=== PATIENT | male | born 1945 | race Caucasian/White ===

== ENCOUNTER → 2018-08-31 | Outpatient (CLI) | payer OTHER ==
[2018-08-31 15:50] LABS: Basophils % (A) 1 %; Eosinophils # (A) 0.4 k/uL (0-0.7); Eosinophils % (A) 5 %; HCT 40.1 % (39.0-53.0); HGB 12.8 gm/dL (13.0-17.5); Lymphocytes # (A) 2.2 k/uL (1.0-4.8); Lymphocytes % (A) 33 %; MCH 26.2 pg (25.0-35.0); MCHC 31.9 g/dL (31.0-37.0); MCV 82.2 fL (80.0-100.0); Monocytes # (A) 0.4 k/uL (0-1.0); Monocytes % (A) 5 %; Neutrophils # (A) 3.6 k/uL (1.3-7.7); Neutrophils % (A) 54 %; Platelet Count 155 k/uL (150-450); RBC 4.88 m/uL (4.30-5.90); RDW 14.8 % (11.5-15.5); WBC 6.8 k/uL (3.8-10.6)
[2018-08-31 15:55] LABS: Potassium 3.8 mmol/L (3.5-5.1)
== END | disposition home or self-care (01) ==
LOC: LABPAT 15:13
PROVIDERS: ATTEND Orthopaedic Surgery
DX: Z01.818 Encounter for other preprocedural examination (principal); Z01.812 Encounter for preprocedural laboratory examination; M23.91 Unspecified internal derangement of right knee
CPT/HCPCS: 36415; 80051; 85025; 93005

== ENCOUNTER 2018-09-13 08:10 | Day surgery (SDC) | payer OTHER ==
[2018-09-10 14:18] VITALS: BMI 38.2
--- NOTE | 2018-09-12 16:51 | HP ---
HISTORY AND PHYSICAL REASON FOR ADMISSION: Surgery is 09/13/2018 HISTORY OF PRESENT ILLNESS: Willy Lamb is a 72-year-old patient seen with progressive right knee pain. We discussed treatment options. He elected to proceed with right knee arthroscopy. Consent was obtained. PAST MEDICAL HISTORY: Hypertension, hyperlipidemia. PAST SURGICAL HISTORY: Left total knee arthroplasty, left shoulder surgery. MEDICATIONS: Amlodipine, simvastatin, morphine. ALLERGIES: LISINOPRIL. SOCIAL HISTORY: Denies tobacco use. PHYSICAL EXAMINATION: Evaluation of the right knee range of motion is negative 2 to 125. Mild effusion. Tenderness medial joint line. Positive medial Francois's. Ligaments are stable. Hip rotation without pain. Distal neurovascular exam intact. RADIOGRAPHS: Radiographs of the right knee revealed moderate plus osteoarthritic changes. An MRI of the right knee revealed medial meniscal tear. IMPRESSION: 1. Internal derangement, right knee with medial meniscal tear. 2. Hypertension. Hyperlipidemia. 1. Chronic opioid use. PLAN: Right knee arthroscopy with partial meniscectomy and debridement. Surgery is scheduled for 09/13/2018. MMODL / IJN: [id number] /
[~2018-09-13 08:10] MED LIST: DEXAMETHASONE SOD PHOSPHATE 10 MG/ML 1 ML VIAL IV ONE; LACTATED RINGERS 1,000 ML IV SCH; LIDOCAINE 1% 20 ML VIAL (10MG/ML) FOR IV START INTRADERMA PRN; MIDAZOLAM 2 MG/2 ML VIAL IV PRN; ONDANSETRON 4 MG/2 ML VIAL IVP ONE; SCOPOLAMINE 1.5MG/72HR PATCH TRANSDERM ONE; ceFAZolin IN SWFI 2 GM/20 ML SYRINGE IVP ONE
[2018-09-13] MEDS ORDERED: LIDOCAINE 1% INJ 10MG/ML (20 ML MDV) ONE (09:23)
[2018-09-13] MEDS ORDERED: MIDAZOLAM 2 MG/2 ML VIAL ONE (09:23)
[2018-09-13] MEDS ORDERED: PROPOFOL 10 MG/ML 20 ML VIAL IV ONE (09:23)
[2018-09-13] MEDS ORDERED: fentaNYL (PF) 50 MCG/ML 2 ML AMP ONE (09:23)
[2018-09-13] MEDS ORDERED: ROPIVACAINE 5 MG/ML 30 ML VIAL ONE (09:23)
[2018-09-13] MEDS ORDERED: BUPIVACAIN-EPI 0.25%-1:200,000 30 ML VIAL INTRAARTIC ONE (09:45)
--- NOTE | 2018-09-13 10:14 | P.ONQ ---
Anesthesiology Proc Note - PNB - Peripheral Nerve Block Performed Right Adductor Canal Single Time Out Performed: Yes Procedure Start Time: 08:52 Procedure Stop Time: 09:00 Indication: Acute Post-Operative Pain, Requested by physician Sedation Type: Sedate with meaningful contact maintained Preparation: Sterile Dressing Position: Supine Catheter: None Needle Types: On-Q Needle Size: 100mm (4") Needle Gauge: 21 Technique: Ultrasound Injectate: 0.5% Ropivacaine (see comment for volume) (20 ml w/ decadron 10 mg) Blood Aspirated: No Pain Paresthesia on Injection Noted: No Resistance on Injection: Normal Events: Uneventful and Well Tolerated
[2018-09-13 10:21] VITALS: RESP 16; TEMP 97.5
--- NOTE | 2018-09-13 10:25 | P.OP ---
Date of Procedure: 09/13/18 Preoperative Diagnosis: Internal derangement right knee Postoperative Diagnosis: 1. Tear medial meniscus right knee 2. Grade 4 chondromalacia medial femoral condyle right knee 3. Reactive synovitis medial, lateral and suprapatellar compartments right knee Procedure(s) Performed: 1. Arthroscopic partial medial meniscectomy right knee 2. Arthroscopic chondroplasty medial femoral condyle right knee 3. Arthroscopic microfracture medial femoral condyle right knee 4. Arthroscopic partial synovectomy medial, lateral and suprapatellar compartments right knee Anesthesia: GETA, regional (Popliteal block), local Surgeon: Ghassan Clark Estimated Blood Loss (ml): 5 Pathology: none sent Condition: stable Disposition: PACU Indications for Procedure: 72-year-old patient seen with progressive right knee pain. After having treatment options discussed, he elected to proceed with arthroscopy. Operative Findings: See description of procedure Description of Procedure: Patient was taken to the operative suite. Patient underwent a general anesthetic by the department of anesthesia. Patient was given preoperative antibiotics. The right lower extremity was placed in a well-padded arthroscopic leg marinelli. The right leg was prepped and draped in the normal sterile orthopedic fashion. A lateral parapatellar and suprapatellar incision was made. Trochars were inserted. Arthroscopy was initiated. Suprapatellar pouch revealed diffuse thick reactive synovitis. The patellofemoral joint appeared to articulate congruently. There was grade 2/3 chondromalacia of the patella. The scope was guided into the medial gutter. No loose body or plica were identified. The scope was then guided into the medial compartment. A medial parapatellar incision was made. Trocar inserted followed by probe. There was a complex tear posterior horn medial meniscus. There were grade 4 chondromalacia changes of the medial compartment with osteochondral tears noted of the medial femoral condyle. There was thick reactive synovitis anteriorly. I performed a partial medial meniscectomy down to stable tissue. I performed a chondroplasty of the medial femoral condyle down to stable tissue. I performed a partial synovectomy decompressing the reactive synovitis. The residual meniscus was stable. There was good decompression of the synovitis. There was an area of exposed bone medial femoral condyle. I performed a microfracture to that area penetrating the bone with resultant bleeding at the microfracture site. Scope and probe were then guided into the intercondylar notch. Cruciates were identified, probed and found to be table. The scope and probe were then guided into lateral compartment. Was some mild fraying of the lateral meniscus midbody area. There was thick reactive synovitis anteriorly. There were grade 1 chondromalacia changes lateral compartment. I debrided that superficial fraying of the lateral meniscus with a motorized shaver. I performed a partial synovectomy decompressing the reactive synovitis anteriorly. There was good decompression of synovitis lateral compartment. The scope was in guided back into the suprapatellar compartment. I introduced a motorized shaver into the suprapatellar compartment. I debrided some piecemeal fragments of meniscus I encountered. I performed a partial synovectomy decompressing the reactive synovitis. Shaver was removed. I took one more look on the entire knee, no residual debris. Instruments were now removed from the joint. The joint was infiltrated with .25% Marcaine. Steri-Strips were applied to the portal sites. Sterile dressings were applied. The patient was placed into a BLAIR hose. No tourniquet was utilized. The patient was awakened, transferred to a bed and taken to recovery stable satisfactory condition.
[2018-09-13] MEDS: HYDROmorphone 0.5 MG/0.5 ML SYRINGE IVP PRN ×4 (10:30→10:54)
[2018-09-13] MEDS ORDERED: diphenhydrAMINE 50 MG/ML 1 ML VIAL IVP ONE (10:42)
[2018-09-13] MEDS ORDERED: fentaNYL (PF) 50 MCG/ML 2 ML AMP IV ONE (11:09)
[2018-09-13 11:56] VITALS: PULSE 73
[2018-09-13 12:35] VITALS: BP 165/67
== END 2018-09-13 13:14 | disposition home or self-care (01) ==
LOC: OR 08:10
PROVIDERS: ATTEND Orthopaedic Surgery
DX: S83.206A Unspecified tear of unspecified meniscus, current injury, right knee, initial encounter (principal); X58.XXXA Exposure to other specified factors, initial encounter; M22.41 Chondromalacia patellae, right knee; M65.861 Other synovitis and tenosynovitis, right lower leg; I10 Essential (primary) hypertension; E78.5 Hyperlipidemia, unspecified; Z79.891 Long term (current) use of opiate analgesic; Z79.899 Other long term (current) drug therapy; Z79.82 Long term (current) use of aspirin; Z88.8 Allergy status to other drugs, medicaments and biological substances
CPT/HCPCS: 64447; 29881; 29876; J2250; J1200; J1100; J2405; J2001; J3010; J2795; J2704; J1170; J0690

== ENCOUNTER 2019-10-03 08:34 | Day surgery (SDC) | payer OTHER ==
[2019-10-02 08:41] VITALS: BMI 38.2
[~2019-10-03 08:34] MED LIST changes: -DEXAMETHASONE SOD PHOSPHATE 10 MG/ML 1 ML VIAL IV ONE; -LIDOCAINE 1% 20 ML VIAL (10MG/ML) FOR IV START INTRADERMA PRN; -MIDAZOLAM 2 MG/2 ML VIAL IV PRN; -ONDANSETRON 4 MG/2 ML VIAL IVP ONE; -SCOPOLAMINE 1.5MG/72HR PATCH TRANSDERM ONE; -ceFAZolin IN SWFI 2 GM/20 ML SYRINGE IVP ONE
[2019-10-03 09:01] VITALS: RESP 16; TEMP 97.6
[2019-10-03] MEDS ORDERED: fentaNYL (PF) 50 MCG/ML 2 ML AMP ONE (09:13)
[2019-10-03] MEDS ORDERED: PROPOFOL 10 MG/ML 20 ML VIAL IV ONE (09:13)
[2019-10-03] MEDS ORDERED: LIDOCAINE 1% INJ 10MG/ML (20 ML MDV) ONE (09:13)
--- NOTE | 2019-10-03 10:01 | P.PCN ---
Date of Procedure: 10/03/19 Description of Procedure: Brief history: Patient is a pleasant 73-year-old male scheduled for EGD and colonoscopy for evaluation of melena and blood in stool. Patient had positive stool for blood. He also takes NSAID therapy daily. Last endoscopic evaluation approximately 8 years ago. Procedure performed: Esophagogastroduodenoscopy with biopsy Colonoscopy with polypectomy Estimated blood loss: Minimal. Preoperative diagnosis: Melena, blood in stool Anesthesia: [facility] [place] Procedure: After informed consent was obtained from the patient was brought into the endoscopy unit and IV sedation was administered by anesthesia under continuous monitoring. Initially upper endoscopy was done. The Olympus GF 190 video endoscope was inserted into the mouth and esophagus intubated without any difficulty and was gradually advanced into the stomach and duodenum and carefully examined. The bulb and second part of the duodenum appeared normal, with biopsies taken. The scope was then withdrawn into the stomach adequately insufflated with air and upon careful examination the antrum and body, cardia and fundus appeared normal, except for diffuse mild punctate erythema in the antrum and body suggestive of mild gastritis of blood taken. A diminutive 1 mm polyp in the fundus of the stomach was also removed with cold forcep polypectomy. The scope was then withdrawn into the esophagus. The GE junction was located at 42 cm to the incisors. It appeared regular with no erythema ero sions or ulcerations. Rest of the esophagus appeared normal. Patient tolerated the procedure well. At this time the patient continued to remain sedation. Initial digital rectal examination was normal. Olympus CF 190 video colonoscope was then inserted into the rectum and gradually advanced to the cecum without any difficulty. Careful examination was performed as the scope was gradually being withdrawn. The prep was excellent. The cecum, ascending colon, transverse colon, descending colon, sigmoid colon and rectum appeared normal. A few scattered diverticula noted in the sigmoid colon. Diminutive 2 mm rectal polyp removed cold forcep polypectomy. Retroflexion was performed in the rectum and no lesions were noted, low-grade internal hemorrhoids noted. Patient tolerated the procedure well. Impression: 1. Mild gastritis antrum and body, biopsied. Duodenal biopsies. Diminutive polyp removed with cold forcep fundus, likely representing fundic gland polyp. 2. Diminutive rectal polyp removed with cold forcep polypectomy. Mild sigmoid diverticulosis. Low-grade internal hemorrhoids. Recommendations: Findings of this examination were discussed with the patient. Okay to resume diet. Okay to resume medications. Await pathology from polypectomy and biopsies. Would recommend repeat colonoscopy in 7 years, pending pathology from polypectomy.
[2019-10-03 10:15] VITALS: BP 150/69; PULSE 54
== END 2019-10-03 10:37 | disposition home or self-care (01) ==
LOC: ORWHC2ENDO 08:34
PROVIDERS: ATTEND Internal Medicine
DX: K62.1 Rectal polyp (principal); K57.30 Diverticulosis of large intestine without perforation or abscess without bleeding; K29.50 Unspecified chronic gastritis without bleeding; K31.7 Polyp of stomach and duodenum; K64.8 Other hemorrhoids; Z87.891 Personal history of nicotine dependence; Z80.51 Family history of malignant neoplasm of kidney; Z96.652 Presence of left artificial knee joint; Z98.890 Other specified postprocedural states; I10 Essential (primary) hypertension; Z86.718 Personal history of other venous thrombosis and embolism; I69.311 Memory deficit following cerebral infarction; E66.01 Morbid (severe) obesity due to excess calories; Z68.38 Body mass index [BMI] 38.0-38.9, adult; Z97.2 Presence of dental prosthetic device (complete) (partial); Z79.82 Long term (current) use of aspirin; Z79.891 Long term (current) use of opiate analgesic; Z79.899 Other long term (current) drug therapy; Z88.8 Allergy status to other drugs, medicaments and biological substances
CPT/HCPCS: 88305; 45380; 43239; J2001; J3010; J2704

== ENCOUNTER → 2020-09-24 | Outpatient (CLI) | payer OTHER ==
--- NOTE | 2020-09-24 21:41 | CONS ---
CONSULTATION DATE OF SERVICE: 09/24/2020 74-year-old gentleman seen in the sleep center for possible obstructive sleep apnea- hypopnea syndrome. HISTORY OF PRESENT ILLNESS SLEEP-WAKE EVALUATION: SLEEP SCHEDULE: Patient does not have regular sleep schedule. He gets up in the morning around 11 am. FALLING ASLEEP: Has problems with falling asleep at night. He has TV set in the bedroom. DURING SLEEP: He sleeps on the back and side position and with snoring and witnessed episodes of stopped breathing during sleep by his . The patient wakes up from sleep several times, three times with nocturia. He wakes up with a dry mouth, gasping for air, restless legs/sleep talking, sweating. In the morning, the patient wakes up tired, falling asleep during the day, worries about his sleep, has problems with memory. [place] Sleepiness Scale increased to 11. He may take one nap around 5:00 pm, usually does not feel significantly restored. After nap, may see vivid dreams during naps, may see vivid dreams while falling asleep. PAST MEDICAL HISTORY: Positive for hypertension, hyperlipidemia, stroke with left-sided weakness without residual deficit. PAST SURGICAL HISTORY: Left knee replacement. Left rotator cuff surgery. MEDICATIONS: The patient did not bring the list of his medications. He remembers that he is taking amlodipine. SOCIAL HISTORY: Alcohol consumption occasional. FAMILY HISTORY: Hypertension, snoring, arthritis. REVIEW OF SYSTEMS: Multiple awakenings from sleep, sleepiness during the day. PHYSICAL EXAM: gentleman in no distress. BP 143/67, his HR 58, RR 15, height 5 feet 10 inches, weight 260, BMI 37.3, temperature 98.2. Oxygen saturation at room air 97%. Oropharynx extremely low position of soft palate, Mallampati 4. Wide neck, 18 inches in circumference. Neck: Supple, no JVD. Thyroid is not palpable. LUNGS: Clear to percussion and to auscultation. Good air exchange. No wheezing or rhonchi. HEART: S1, S2 regular. No murmurs, gallops, or rubs. ABDOMEN: Soft and nontender. Bowel sounds are present. No organomegaly appreciated. EXTREMITIES: No clubbing or cyanosis. BUS INSPECTOR: Awake, alert, and oriented X3. Cranial nerves 2 to 7 intact. There is no fasciculation or atrophy. noted. No focal deficits observed. IMPRESSION: 1. Snoring, witnessed episodes of stopped breathing during sleep, extremely low position of soft palate. Mallampati 4, wide neck 18 inches in circumference, excessive daytime sleepiness. [place] Sleepiness Scale increased to 11. Obstructive sleep apnea-hypopnea syndrome. 2. Obesity, BMI 37.3. 3. Hypertension. 4. History of stroke with left-sided weakness without residual deficit. 5. Hyperlipidemia. 6. Status post left knee replacement. 7. Status post right shoulder rotator cuff surgery. PLAN: 1. Polysomnography for evaluation of patient's breathing during sleep. 2. CPAP/BiPAP titration if sleep study confirms obstructive sleep apnea-hypopnea syndrome. 3. Preferable position during sleep on the side. 4. No driving if patient feels any sleepiness. 5. I will see patient for follow up visit to explain results of testing and following plan. Thank you very much for referring this patient for consultation. Sincerely, Jamal Vizcarra MD, PhD, FAASM Diplomat of [employer] [place] [employer] Corporate Accountant [facility] [place] MMODL / NIKOLASN: [id number] /
== END ==
LOC: SLEEP 14:43
PROVIDERS: ATTEND Internal Medicine
DX: G47.33 Obstructive sleep apnea (adult) (pediatric) (principal); E66.9 Obesity, unspecified; I10 Essential (primary) hypertension; E78.5 Hyperlipidemia, unspecified; Z96.652 Presence of left artificial knee joint; Z98.890 Other specified postprocedural states; Z86.73 Personal history of transient ischemic attack (TIA), and cerebral infarction without residual deficits; Z68.37 Body mass index [BMI] 37.0-37.9, adult; Z87.891 Personal history of nicotine dependence; Z88.8 Allergy status to other drugs, medicaments and biological substances
CPT/HCPCS: 99211

== ENCOUNTER → 2021-06-29 | Outpatient (CLI) | payer OTHER ==
--- NOTE | 2021-06-29 10:04 | CT ---
EXAMINATION TYPE: CT abdomen pelvis wo/w con DATE OF EXAM: 06/29/2021 COMPARISON: None available HISTORY: Hematuria CT DLP: 4052.7 mGycm Automated exposure control for dose reduction was used. TECHNIQUE: Helical acquisition of images was performed from the lung bases through the pelvis. CONTRAST: Performed with Oral Contrast and without and with IV Contrast, patient injected with 100 mL of Isovue 300. FINDINGS: LUNG BASES: Left lung base 5 mm nodule with middle lobe pleural-based triangular density measuring up to 10 mm. Recommend precautionary follow-up CT scan in 3 months for reassessment. Groundglass opacit ies and minimal cystic changes are seen in the lung bases. Cardiomegaly. LIVER/GB: Grossly unremarkable liver. Cholelithiasis without evidence of acute cholecystitis. PANCREAS: Atrophic with fatty infiltration. SPLEEN: No significant abnormality is seen. ADRENALS: No significant abnormality is seen. KIDNEYS: 7 mm nonobstructing calculus is seen at the midpole of the right kidney. Tiny millimetric bi lateral renal hypodensities, too small to characterize and likely representing tiny renal cysts. Unre markable kidneys otherwise. No definite filling defect is seen within the renal collecting system or the opacified portion of the ureters. Mild wall thickening of the urinary bladder with focal thickeni ng in the superior aspect of the left side of the bladder measuring 14 mm. Grossly unremarkable urina ry bladder otherwise. Prostatic concretion without significant enlargement. Unremarkable seminal vesi cles. FREE AIR: No free air is visualized. RETROPERITONEAL ADENOPATHY: None visualized PELVIC ADENOPATHY: None visualized. OSSEOUS STRUCTURES: Degenerative changes off the lower thoracic, lumbar spine, sacroiliac joints and right hip joint. BOWEL: Unremarkable nondistended stomach. Second part of the duodenum diverticulum, otherwise unrema rkable duodenum and small bowel. Colonic diverticulosis most evident involving the sigmoid colon and descending colon. OTHER: Scattered arterial atherosclerotic calcifications. No sizable ascites. Lipoma is seen along th e left iliopsoas muscle extending from the left side of the pelvis to the left upper thigh measuring up to 22.9 cm in craniocaudal dimension, for surgical consultation. IMPRESSION: 7 mm nonobstructing stone at the midpole of the right kidney. No definite suspicious renal lesion. 14 mm focal thickening of the urinary bladder wall as described above, for correlation with urinalysis results including cytology and further cystoscopy. Other incidental findings as detailed above.
== END | disposition home or self-care (01) ==
LOC: RADCTMAIN 06:53
DX: N20.0 Calculus of kidney (principal); N32.89 Other specified disorders of bladder
CPT/HCPCS: 82565; 84520; 74178; 36415; Q9967

== ENCOUNTER → 2022-12-21 | Outpatient (CLI) | payer OTHER ==
--- NOTE | 2022-12-22 09:35 | CT ---
EXAMINATION TYPE: CT heart w calcium score DATE OF EXAM: 12/21/2022 COMPARISON: None HISTORY: Screening for cardiovascular disorder. 213.9 CT DLP: 94.2 mGycm Automated exposure control for dose reduction was used. CT CALCIUM SCORING Coronary calcium is a marker for plaque (fatty deposits) in a blood vessel or atherosclerosis (harden ing of the arteries). The presence and amount of calcium detected in a coronary artery by the CT sca n, indicates the presence and amount of atherosclerotic plaque. These calcium deposits appear years before the development of heart disease symptoms such as chest pain and shortness of breath. A calcium score is computed for each of the coronary arteries based upon the volume and density of th e calcium deposits. This can be referred to as your calcified plaque burden. It does not correspond directly to the percentage of narrowing in the artery but does correlate with the severity of the un derlying coronary atherosclerosis. PROCEDURE TECHNIQUE - Prospective Gating was used. Slice thickness: 3mm. Density threshold (HU): 130, Pixel threshold: 3, Algorithm: discrete. RESULTS Region: LM Calcium Score (Agatston): 383.5 Volume (mm3): 315.31 Mass (g): 105.1 Region: RCA Calcium Score (Agatston): 0 Volume (mm3): 0 Mass (g): 0 Region: LAD Calcium Score (Agatston): 0 Volume (mm3): 0 Mass (g): 0 Region: CX Calcium Score (Agatston): 188.06 Volume (mm3): 168.08 Mass (g): 56.03 Region: PDA Calcium Score (Agatston): 0 Volume (mm3): 0 Mass (g): 0 Total: Calcium Score (Agatston): 571.56 Volume (mm3): 483.39 Mass (g): 161.13 TOTAL CALCIUM SCORE: 571.56 IMPRESSION: Calcium Score: 571.56 Implication: Extensive atherosclerotic plaque Risk of Coronary Artery Disease: High likelihood of at least one significant coronary narrowing. CALCIUM SCORE IMPLICATION RISK OF C ORONARY ARTERY DISEASE 401 or Higher Extensive atherosclerotic plaque High lik elihood of at least one significant coronary narrowing
== END | disposition home or self-care (01) ==
LOC: RADCTMAIN 13:53
DX: Z13.6 Encounter for screening for cardiovascular disorders (principal)
CPT/HCPCS: 75571

== ENCOUNTER 2023-10-25 06:45 | Day surgery (SDC) | payer MEDICARE, OTHER ==
[2023-10-24 08:40] VITALS: BMI 33.4
[~2023-10-25 06:45] MED LIST changes: +ALPRAZolam 0.25 MG TAB PO PRN; +ALPRAZolam 0.5 MG TAB PO PRN; +ASPIRIN 325 MG TAB PO STA; -LACTATED RINGERS 1,000 ML IV SCH; +NITROGLYCERIN SL TABS 0.4 MG TAB SUBLINGUAL PRN
[2023-10-25 07:24] VITALS: RESP 18; TEMP 98.5
[2023-10-25] MEDS: SODIUM CHLORIDE 0.9% 1,000 ML in EMPTY BAG 1 BAG IV SCH (07:24)
[2023-10-25 07:25] LABS: Basophils % (A) 0 %; Eosinophils # (A) 0.2 k/uL (0-0.7); Eosinophils % (A) 3 %; HCT 40.1 % (39.0-53.0); HGB 13.1 gm/dL (13.0-17.5); Lymphocytes # (A) 2.2 k/uL (1.0-4.8); Lymphocytes % (A) 32 %; MCH 27.8 pg (25.0-35.0); MCHC 32.7 g/dL (31.0-37.0); MCV 85.3 fL (80.0-100.0); Mean Platelet Volume 9.5; Monocytes # (A) 0.5 k/uL (0-1.0); Monocytes % (A) 7 %; Neutrophils # (A) 3.8 k/uL (1.3-7.7); Neutrophils % (A) 55 %; Platelet Count 223 k/uL (150-450); RBC 4.71 m/uL (4.30-5.90); RDW 14.2 % (11.5-15.5); WBC 6.9 k/uL (3.8-10.6)
[2023-10-25] MEDS: IV FLUID CONTINUATION 1,000 ML IV ONE (07:25)
[2023-10-25 07:38] LABS: African American GFR (CKD) 90 (>60 ml/min/1.73 sqM); Anion Gap 6 mmol/L; Blood Urea Nitrogen 13 mg/dL (9-20); Calcium 9.4 mg/dL (8.4-10.2); Carbon Dioxide 27 mmol/L (22-30); Chloride 107 mmol/L (98-107); Glucose 100 mg/dL (74-99); Non-African American GFR(CKD) 78 (>60 ml/min/1.73 sqM); Potassium 3.8 mmol/L (3.5-5.1); Sodium 140 mmol/L (137-145)
[2023-10-25] MEDS ORDERED: VERAPAMIL 2.5 MG/ML 2 ML AMP ONE (08:14)
[2023-10-25] MEDS ORDERED: fentaNYL (PF) 50 MCG/ML 2 ML AMP ONE (08:31)
[2023-10-25] MEDS ORDERED: HEPARIN SODIUM 1,000 UN/ML (10ML VL) ONE (08:31)
[2023-10-25] MEDS: MIDAZOLAM 2 MG/2 ML VIAL IVP ONE (08:40)
[2023-10-25] MEDS: fentaNYL (PF) 50 MCG/ML 2 ML AMP IVP ONE (08:40)
[2023-10-25] MEDS: LIDOCAINE 1% INJ 10MG/ML (20 ML MDV) SQ ONE (08:42)
[2023-10-25] MEDS: VERAPAMIL SYRINGE (5 MG/10 ML) INTRAARTER ONE (08:43)
[2023-10-25] MEDS: HEPARIN SODIUM 1,000 UN/ML (10ML VL) IV ONE (08:45)
[2023-10-25] MEDS: IOPAMIDOL-370 100ML BTL INJ ONE (08:56)
[2023-10-25] MEDS: HEPARIN SODIUM,PORCINE (1 ML) 2,500 UNIT in SODIUM CHLORIDE 0.9% 250 ML IRRIGATION PRN (08:57)
[2023-10-25] MEDS: HEPARIN SODIUM,PORCINE 10,000 UNIT in SODIUM CHLORIDE 0.9% 1,000 ML IRRIGATION PRN (08:57)
--- NOTE | 2023-10-25 10:47 | P.CARDCATH ---
Description of Procedure: PROCEDURES PERFORMED: Left heart catheterization, bilateral coronary angiography, ultrasound guided arterial access INDICATION: abnormal stress test CONSENT:I have discussed the risks, benefits and alternative therapies for the above-mentioned procedure and for both sedation/analgesia as well as necessary blood product administration, if indicated, as they pertain to this patient. The patient has indicated understanding and acceptance of the risks and procedures discussed. PROCEDURE: After the risks, benefits and alternatives of the above mentioned procedure explained in detail with the patient, informed consent was obtained. Patient was taken to the catheterization lab and prepped and draped in usual fashion. Ultrasound guidance was used to assess for arterial access. 1% lidocaine was used to anesthetize the right radial artery. A 6-Montenegrin sheath was placed in the right radial artery using modified Seldinger technique and ultrasound guidance. Left coronary angiography was performed with a 5-Montenegrin JL 3.5 catheter and right coronary angiography was performed with a 6-Montenegrin AR2 catheter in various views. A 5-Montenegrin FR5 catheter was inserted into the left ventricle and pressure measurements were obtained. The right radial sheath was removed and a TR band was placed with hemostasis achieved. The patient to lerated the procedure well. Patient was transported back to the post catheterization holding area in stable condition. Conscious Sedation: Patient was monitored under the direct supervision of myself for conscious sedation using Versed and fentanyl for a total duration of 14 minutes HEMODYNAMICS: Ao: 143/71 LV: 139/5, LVEDP 15 SELECTIVE CORONARY ARTERIOGRAPHY: LEFT MAIN: The left main is a large caliber vessel which bifurcates into the LAD and circumflex. There is no significant stenosis. LEFT ANTERIOR DESCENDING CORONARY ARTERY: LAD is a large caliber vessel which wraps around to the apex. There are mild luminal irregularities LEFT CIRCUMFLEX CORONARY ARTERY: Left circumflex is a moderate caliber vessel with mild proximal circumflex 20-30% stenosis and otherwise mild luminal irr egularities. The circumflex is dominant system and supplies the PDA. RIGHT CORONARY ARTERY: The right coronary artery is a small caliber vessel which gives off an acute marginal branch and is nondominant. There is 50-60% stenosis of the RCA as well as the marginal branch. FINAL IMPRESSION: 1. CAD as described above including 20-30% circumflex stenosis, 50-60% small caliber nondominant RCA, marginal branch stenosis. 2. Normal left sided filling pressures PLAN: 1. Aggressive risk factor modification per most recent ACC/AHA guidelines. 2. Follow-up in the office in 1-2 weeks.
[2023-10-25 12:06] VITALS: BP 136/60; PULSE 50
== END 2023-10-25 12:09 | disposition home or self-care (01) ==
LOC: CATHCVL 06:45
PROVIDERS: ATTEND Internal Medicine
DX: I25.10 Atherosclerotic heart disease of native coronary artery without angina pectoris (principal); I10 Essential (primary) hypertension; E78.5 Hyperlipidemia, unspecified; I51.7 Cardiomegaly; Z86.73 Personal history of transient ischemic attack (TIA), and cerebral infarction without residual deficits; Z79.82 Long term (current) use of aspirin; Z79.899 Other long term (current) drug therapy; Z88.8 Allergy status to other drugs, medicaments and biological substances
CPT/HCPCS: 93458; 80048; 85025; 99152; C1769; C1894; J2250; J1644 ×3; J2001; J3010; Q9967

== ENCOUNTER → 2024-07-25 | Outpatient (CLI) | payer OTHER ==
--- NOTE | 2024-07-25 17:05 | MR ---
EXAMINATION TYPE: MR lumbar spine wo con DATE OF EXAM: 07/25/2024 11:18 AM COMPARISON: None. CLINICAL INDICATION: Male, 78 years old with history of Lumbar pain, low back pain, that radiates karthik n both legs TECHNIQUE: Multiplanar, multisequence images of the lumbar spine were acquired without IV contrast. FINDINGS: Vertebral body heights are preserved and alignment is maintained. No suspicious bone marrow replacement. Conus medullaris is normal. There is mild degenerative disc disease from L2 to S1 levels with desiccated and mildly bulging discs . No large focal disc herniation or significant spinal canal stenosis. Moderate hypertrophic facet arthropathy mid to lower lumbar spine. On the right, changes result in mild neuroforaminal stenoses at L4-L5 and L5-S1. On the left, changes result in mild neuroforaminal narrowing at L4-L5. No high-grade foraminal compromise is identified. No prevertebral or paravertebral soft tissue abnormality. IMPRESSION: 1. Mild degenerative disc disease from L2 through S1 levels. No large focal disc herniation or signif icant spinal canal stenosis. 2. Additional moderate hypertrophic facet arthropathy mid to lower lumbar spine. Changes result in mi ld right neuroforaminal stenosis at L4-L5 and L5-S1; on the left at L4-L5. [facility], , 07/25/2024 5:03 PM
== END | disposition home or self-care (01) ==
LOC: RADMRIMAIN 10:04
PROVIDERS: ATTEND Family Medicine
DX: M51.369 Other intervertebral disc degeneration, lumbar region without mention of lumbar back pain or lower extremity pain (principal); G90.09 Other idiopathic peripheral autonomic neuropathy; M51.379 Other intervertebral disc degeneration, lumbosacral region without mention of lumbar back pain or lower extremity pain; M47.816 Spondylosis without myelopathy or radiculopathy, lumbar region; M48.061 Spinal stenosis, lumbar region without neurogenic claudication
CPT/HCPCS: 72148

== ENCOUNTER → 2024-09-30 | Outpatient (CLI) | payer OTHER ==
[2024-09-30 10:54] VITALS: BP 118/75; PULSE 70; RESP 19
--- NOTE | 2024-09-30 16:01 | P.PAINPG ---
PQRS Measure Charge Sheet Comment: HISTORY OF PRESENT ILLNESS: A 78 yr old male as a referral from the presents today w severe and chronic LBP > 1 yr secondary to radiculopathy, spondylosis and facet arthropathy without myelopathy for evaluation. Pt states pain level is provoked at 5-6 /10 in intensity, constant, localized in the lumbar spine, predominantly axial, sore in character w occasional shooting pain towards the BLEs and up the spine. Pain is provoked by lifting. Pain is alleviated by physician guided home exercises e very other day weekly since August 2024, heat, topical, use of a cane for ambulatory assistance, repositioning and rest . Oswestry axial pain score at 20. PMH: OA, CAD PSH: EGD (2019), R Knee Arthroplasty (2018), Cardiac Catheterization (2023), Colonoscopy (2013), SH: Hx of tobacco use, Occ ETOH use, Hx of Cannabis use FH: Non contributory All: See list Medications include REVIEW OF ORGAN SYSTEMS: CONSTITUTIONAL: No fevers or chills. No recent weight loss. NEUROLOGICAL: + numbness and tingling along the distal extremities. No seizure disorders or headaches. MUSCULOSKELETAL: + pain PSYCHIATRIC: Denies current depression or suicidal thoughts. Physical Examinations : Constitutional : Cooperative , not in acute distress . Neurologic : Cranial nerve II to XII intact. No focal neurological deficits. Psychiatric : alert & oriented x 3. Matching mood & appropriate affect. Judgment & insight intact. Musculoskeletal : Cervical Spine Motor strength in the deltoid and biceps: Normal right side. Normal Left side Motor strength biceps and the wrist extensors: Normal right side . Normal left side Motor strength in the triceps muscle: Normal right side. Normal left side Deep tendon reflexes: Normal at the biceps. Normal at Brachioradialis. Normal at triceps Vertebral body tenderness to deep palpation over Cervical facet loading test: positive bilaterally Spurling test: positive bilaterally Neck distraction test: positive bilaterally Bryant sign: positive bilaterally Lumbar spine Motor strength lower extremities ,thigh and legs 5/5 Right side , 5/5 Left side Deep tendon reflexes : Normal Knee Jerk. Normal Ankle Jerk Vertebral body tenderness over L5 Rosa Test positive Lumbar facet Loading Test: positive Right / positive Left Range of motion of the lumbar spine Flexion 30 degrees, extension 10 degrees Straight Leg Raise test: Left/ Right positive at < 30 degrees Lucian test: positive right / positive left. Severe tenderness over the Sacroiliac joint on the Right / Left sides Gaenslen test: positive bilaterally Seated flexion test: positive bilaterally. Sacral spine : Severe tenderness over the Sacroiliac joint: right side / left side Range of motion: Flexion of the lumbar spine <60 degrees Range of motion: Extension of the lumbar spine <20 degrees Gaenslen's Test positive Lucian test: positive right side / left side Thigh Thrust Test Sacral Thrust Test Imaging: MRI non contrast lumbar spine from 07/25/24 reviewed Assessment/ Plan : Lumbar radiculopathy, facet arthropathy Recommendation of CHRISTOPHER L5-S1 #1 and medication management. Risks, benefits of procedure discussed and patient verbalized understanding. Admits to anti- coagulant use or medical history of diabetes. Protocol for discontinuation/ continuation of medications vu procedure discussed. Minimal anesthesia provided, if clinically indicated, consisting of Versed and Fentanyl. [place] 7.5/325mg #90 w RF. Opiate/ narcotic agreement signed 09/30/24. Use, side effects, adverse reactions, safe storage discussed. All questions answered. I have spent greater than 30 minutes on patient care today. Dr Arguello was available by phone for the evaluation of this patient. The time was used to review the medical records including relevant urine studies and Prescription history (MAPs), review of the available imaging, evaluation and examination of the patient, coordination of care with the medical staff and if applicable referring physicians, as well as creation of the medical record - Pain Location Lower Back Non-Pharmacological Interventions: Heat Pharmacological Interventions: Medication PQRS Narrative: Smoking Status Former smoker Home Medications: Ambulatory Orders Aspirin 81 mg PO DAILY 02/10/14 Cyanocobalamin [Vitamin B-12] 250 mg PO DAILY 02/10/14 Docusate Sodium [Stool Softener] 100 mg PO DIRECTED PRN 02/10/14 Simvastatin [Zocor] 80 mg PO HS 02/10/14 amLODIPine [Norvasc] 10 mg PO HS 02/10/14 Gabapentin [Neurontin] 300 mg PO BID 09/13/18 FLUoxetine HCL 20 mg PO DAILY 10/25/23 HYDROcodone/APAP 7.5-325MG [[place] 7.5-325] 1 tab PO TID PRN 30 Days #90 tab 09/30/24 HYDROcodone/APAP 7.5-325MG [[place] 7.5-325] 1 tab PO TID PRN 30 Days #90 tab 09/30/24 Controlled Substance Measures - Controlled Substance Measures Is patient prescribed a controlled substance at discharge?: Yes When asked, does pt state using other controlled substances?: No If prescribed controlled substance>3 days was MAPS reviewed?: Yes If Rx opioid, was Start Talking consent form obtained?: Yes Was information provided regarding opioid addiction?: Yes
== END ==
LOC: PNWHC3 10:37
PROVIDERS: ATTEND Specialist
DX: M47.26 Other spondylosis with radiculopathy, lumbar region (principal); Z88.8 Allergy status to other drugs, medicaments and biological substances; Z87.891 Personal history of nicotine dependence
CPT/HCPCS: 99202

== ENCOUNTER → 2024-11-05 | Day surgery (SDC) | payer OTHER ==
[2024-10-31 15:18] VITALS: BMI 33.7
[~2024-11-05] MED LIST changes: -ALPRAZolam 0.25 MG TAB PO PRN; -ALPRAZolam 0.5 MG TAB PO PRN; -ASPIRIN 325 MG TAB PO STA; +IOPAMIDOL M300 15ML VIAL ONE; +LACTATED RINGERS 1,000 ML IV SCH; -NITROGLYCERIN SL TABS 0.4 MG TAB SUBLINGUAL PRN; +methylPREDNISolone ACETATE 80 MG/ML 1 ML VIAL ONE
[2024-11-05 09:52] VITALS: TEMP 98
[2024-11-05 10:29] VITALS: RESP 16
--- NOTE | 2024-11-05 10:29 | P.PCN ---
Description of Procedure: PREOPERATIVE DIAGNOSIS: 1- Lumbar Degenerative Disc Diseases 2-Lumbar spondylosis with Facet arthropathy without myelopathy. 3-lumbar spinal stenosis 4-Lumber radiculopathy POSTOPERATIVE DIAGNOSIS: 1-lumbar degenerative disc disease. 2-lumbar spondylosis with facet arthropathy without myelopathy. 3-lumbar spinal stenosis. 4-Lumber radiculopathy PROCEDURE Injection of radio contrast material into L5-S1 interspace, interpretation of epidurogram, injection of steroid at L5-S1 epidural space under fluoroscopic guidance. ANESTHESIA: Lidocaine 1% subcutaneously. In OR continuous pulse ox, EKG, blood pressure and verbal communication was maintained with the patient. EBL: Minimal PROCEDURE INDICATION: Before the procedure were discussed with the patient detailed procedure, alternatives, complications including infection, bleeding, nerve damage, paralysis all of which could be permanent. Patient understands and all questions were answered. PROCEDURE DESCRIPTION : After getting consent, patient in OR in prone position. Back was prepped with chlorhexidine and draped in sterile fashion. After injecting 10 mL of 1% lidocaine subcutaneously, a 20-gauge Tuohy needle was introduced at L5-S1 interspace with loss of resistance technique using a syringe filled with air. Negative CSF, negative blood, negative paresthesia. Needle position was confirmed with AP and lateral view of the fluoroscope. After repeat negative aspiration 2 mL of Omnipaque 200 water soluble contrast was injected. Contrast was noted in the epidural space. No contrast was noted into intrathecal or intravascular space. After repeat negative aspiration 6 mL solution was injected intermittently which consists of 5 mL of preservative-free normal saline mixed with 1 mL of 80 mg Depo-Medrol. Needle was withdrawn intact. Skin was cleansed and Band-Aids was applied. DISPOSITION / PLANS: The patient tolerated the procedure well. No complication. The patient was placed in a supine position and transferred to the recovery area in a stable condition for observation. There was no evidence of lower extremity motor or sensory deficit after the procedure. Patient was discharged from the recovery room after meeting discharge criteria. Home discharge instructions were given to the patient by the staff. The patient was reexamined prior to discharge. The patient will schedule a follow up in the clinic in 2-4 weeks.
--- NOTE | 2024-11-05 10:35 | FL ---
EXAMINATION TYPE: FL guided pain mgmt statistic Intraoperative/procedural fluoroscopic services were provided. CLINICAL INDICATION:Male, 79 years old with history of LESI; , [facility] FINDINGS: Single fluoroscopic image demonstrating lumbar epidural steroid injection. No radiographic evidence f or complication. Total fluoroscopy time is 8.8 seconds. DAP: [id number] Please see the operative/procedural note for further details. [facility], , 11/05/2024 10:33 AM
[2024-11-05 10:45] VITALS: BP 144/76; PULSE 60
== END ==
LOC: ORPAIN 08:56
PROVIDERS: ATTEND Pain Medicine Interventional Pain Medicine
DX: M48.061 Spinal stenosis, lumbar region without neurogenic claudication (principal); M47.26 Other spondylosis with radiculopathy, lumbar region; M51.369 Other intervertebral disc degeneration, lumbar region without mention of lumbar back pain or lower extremity pain; Z88.8 Allergy status to other drugs, medicaments and biological substances
CPT/HCPCS: 62323; Q9967; J1010